=== PATIENT | male | born 1955 | race Caucasian/White ===

== ENCOUNTER 2020-08-12 12:08 | Observation (INO) ==
[2020-08-12 13:19] LABS: Basophils # 0.1 K/mcL (0.0-0.2); Basophils % 0.4 %; Eosinophils # 0.1 K/mcL (0.0-0.6); Eosinophils % 0.7 %; Hematocrit 49.7 % (37.5-50.1); Hemoglobin 16.7 g/dL (12.9-16.9); Immature Granulocytes % 0.4 % (0-4); Lymphocytes % 14.3 %; Mean Corpuscular HGB Conc 33.6 g/dL (31.6-35.5); Mean Corpuscular Hemoglobin 30.5 pg (28.0-33.3); Mean Corpuscular Volume 90.7 fL (83.0-100.0); Mean Platelet Volume 9.4 fL (9.4-12.4); Monocytes # 0.8 K/mcL (0.0-1.3); Monocytes % 5.9 %; Neutrophils # 10.9 K/mcL (1.6-8.9); Platelet Count 319 K/mcL (140-400); Red Blood Count 5.48 M/mcL (4.19-5.50); Red Cell Distribution Width 11.9 % (11.5-14.5); Segmented Neutrophils % 78.3 %; White Blood Count 13.9 K/mcL (4.3-11.1)
[2020-08-12 13:37] LABS: Alanine Aminotransferase 23 Units/L (7-52); Albumin 4.2 g/dL (3.5-5.7); Albumin/Globulin Ratio 1.3 (1.1-2.2); Alkaline Phosphatase 250 Units/L (34-104); Amylase 20 Units/L (29-103); Aspartate Amino Transferase 17 Units/L (13-39); BUN/Creatinine Ratio 17 (6-26); Bilirubin,Direct 0.1 mg/dL (0.0-0.2); Bilirubin,Indirect 0.6 mg/dL (0.0-1.0); Bilirubin,Total 0.7 mg/dL (0.3-1.0); Blood Urea Nitrogen 17 mg/dL (8-23); Calcium 9.6 mg/dL (8.6-10.3); Carbon Dioxide 28 mEq/L (23-29); Chloride 93 mEq/L (98-107); Globulin 3.2 g/dL (2.4-3.5); Glucose 603 mg/dL (70-105); Lipase 11 Units/L (11-82); Osmolality,Calculated 298 (280-300); Potassium 4.7 mEq/L (3.5-5.1); Sodium 129 mEq/L (136-145); Total Protein 7.4 g/dL (6.4-8.9); eGFR For African Americans > 60 (> 60); eGFR For Non-African Americans > 60 (> 60)
[2020-08-12] MEDS ORDERED: 0.9 % Sodium Chloride 1,000 ML IVC ONE ×2 (13:49→15:54)
[2020-08-12] MEDS ORDERED: Isovue-370 500 ML BOTTLE IVP ONE (13:58)
[2020-08-12 14:41] LABS: Amorphous Sediment,Urine Few per hpf (None-Few); Bilirubin,Urine Negative (Negative); Blood,Urine Large (Negative); Clarity,Urine Turbid (Clear); Color,Urine Light-Yellow (Yellow); Glucose,Urine (UA) >=1000 mg/dL (Normal); Ketones,Urine Negative (Negative); Leukocyte Esterase,Urine Large (Negative); Nitrite,Urine Positive (Negative); Protein,Urine Trace mg/dL (Neg-Trace); RBC,Urine 50-100 per hpf (0-3); Specific Gravity,Urine > 1.030 (1.010-1.025); Urobilinogen,Urine Normal (Normal); WBC,Urine 50-100 per hpf (0-3)
[2020-08-12] MEDS ORDERED: cefTRIAXone 1,000 MG in 0.9 % Sodium Chloride Mini Bag 100 ML IVPB ONE (15:40)
[2020-08-12] MEDS ORDERED: Naloxone 0.4 MG/ML INJ IVP PRN (16:15)
[2020-08-12] MEDS ORDERED: D5% in Water 1,000 ML IVC PRN (16:33)
[2020-08-12] MEDS ORDERED: Dextrose Gel 15 GM/37.5 ML TUBE PO PRN ×2 (16:33)
[2020-08-12] MEDS ORDERED: Benzonatate 100 MG CAPSULE PO PRN (16:33)
[2020-08-12] MEDS ORDERED: *HR* Dextrose 50 % in Water (Vial) 50 ML VIAL IVP PRN (16:33)
[2020-08-12] MEDS: Insulin LISPRO 300 UNITS/3 ML VIAL SQ SCH (20:20)
[2020-08-12] MEDS: *HR* Heparin 5,000 UNIT/ML VIAL SQ SCH (20:41)
[2020-08-12] MEDS ORDERED: Insulin DETEMIR 100 UNIT/ML X5UNITS SQ SCH (21:00)
[2020-08-12] MEDS ORDERED: Insulin LISPRO 300 UNITS/3 ML VIAL SQ SCH (21:00)
[2020-08-13] MEDS: *HR* Heparin 5,000 UNIT/ML VIAL SQ SCH ×2 (05:34→14:09)
[2020-08-13 06:44] LABS: Hematocrit 45.1 % (37.5-50.1); Hemoglobin 15.2 g/dL (12.9-16.9); Mean Corpuscular HGB Conc 33.7 g/dL (31.6-35.5); Mean Corpuscular Hemoglobin 31.1 pg (28.0-33.3); Mean Corpuscular Volume 92.2 fL (83.0-100.0); Mean Platelet Volume 9.3 fL (9.4-12.4); Platelet Count 276 K/mcL (140-400); Red Blood Count 4.89 M/mcL (4.19-5.50); Red Cell Distribution Width 11.9 % (11.5-14.5); White Blood Count 13.7 K/mcL (4.3-11.1)
[2020-08-13 06:54] LABS: BUN/Creatinine Ratio 20 (6-26); Blood Urea Nitrogen 18 mg/dL (8-23); Calcium 9.1 mg/dL (8.6-10.3); Carbon Dioxide 30 mEq/L (23-29); Chloride 102 mEq/L (98-107); Glucose 98 mg/dL (70-105); Osmolality,Calculated 288 (280-300); Potassium 3.6 mEq/L (3.5-5.1); Sodium 138 mEq/L (136-145); eGFR For African Americans > 60 (> 60); eGFR For Non-African Americans > 60 (> 60)
[2020-08-13] MEDS: Insulin LISPRO 300 UNITS/3 ML VIAL SQ SCH ×4 (08:11→11:55)
[2020-08-13] MEDS ORDERED: cefTRIAXone 2,000 MG in Water for inj. (sterile) 20 ML IVP SCH (09:00)
[2020-08-13 15:57] VITALS: BP 132/79
[2020-08-14] MEDS ORDERED: lisinopriL 5 MG TABLET PO SCH (09:00)
[2020-08-14] MEDS ORDERED: Aspirin Enteric Coated 81 MG Tablet PO SCH (09:00)
== END 2020-08-13 16:54 | disposition home or self-care (01) ==
LOC: EMEROOARM 12:08 → 3ANU 12:08
PROVIDERS: ADMIT Family Medicine; ATTEND Family Medicine

== ENCOUNTER 2021-04-24 22:21 | Observation (INO) ==
[2021-04-24 23:04] LABS: Basophils # 0.1 K/mcL (0.0-0.2); Basophils % 0.8 %; Eosinophils # 0.2 K/mcL (0.0-0.6); Eosinophils % 2.4 %; Hemoglobin 16.4 g/dL (12.9-16.9); Immature Granulocytes % 0.4 % (0-4); Lymphocytes # 2.5 K/mcL (0.6-4.6); Lymphocytes % 32.1 %; Mean Corpuscular HGB Conc 33.5 g/dL (31.6-35.5); Mean Corpuscular Hemoglobin 31.4 pg (28.0-33.3); Mean Corpuscular Volume 93.9 fL (83.0-100.0); Mean Platelet Volume 9.7 fL (9.4-12.4); Monocytes # 0.5 K/mcL (0.0-1.3); Monocytes % 6.8 %; Neutrophils # 4.5 K/mcL (1.6-8.9); Platelet Count 231 K/mcL (140-400); Red Blood Count 5.22 M/mcL (4.19-5.50); Red Cell Distribution Width 11.9 % (11.5-14.5); Segmented Neutrophils % 57.5 %; White Blood Count 7.8 K/mcL (4.3-11.1)
[2021-04-24 23:22] LABS: BUN/Creatinine Ratio 16 (6-26); Blood Urea Nitrogen 17 mg/dL (8-23); Carbon Dioxide 29 mEq/L (23-29); Chloride 94 mEq/L (98-107); Glucose 605 mg/dL (70-105); Osmolality,Calculated 300 (280-300); Potassium 4.3 mEq/L (3.5-5.1); Sodium 130 mEq/L (136-145); Troponin I 0.03 ng/mL (< 0.04); eGFR For African Americans > 60 (> 60); eGFR For Non-African Americans > 60 (> 60)
[2021-04-25] MEDS ORDERED: Insulin Human Regular 10 UNIT in 0.9 % Sodium Chloride 10 ML IV ONE ×2 (00:27→05:20)
[2021-04-25] MEDS ORDERED: Ondansetron 4 MG/2 ML VIAL IVP PRN (05:08)
[2021-04-25] MEDS ORDERED: Naloxone 0.4 MG/ML INJ IVP PRN (05:08)
[2021-04-25] MEDS ORDERED: Melatonin 3 MG TABLET PO PRN (05:08)
[2021-04-25] MEDS ORDERED: D5% in Water 1,000 ML IVC PRN (05:35)
[2021-04-25] MEDS ORDERED: *HR* Dextrose 50 % in Water (Vial) 50 ML VIAL IVP PRN (05:35)
[2021-04-25] MEDS ORDERED: Dextrose Gel 15 GM/37.5 ML TUBE PO PRN ×2 (05:35)
[2021-04-25] MEDS: Aspirin 81 MG TAB.CHEW PO SCH (08:15)
[2021-04-25 09:54] LABS: Basophils # 0.1 K/mcL (0.0-0.2); Basophils % 0.8 %; Eosinophils # 0.3 K/mcL (0.0-0.6); Eosinophils % 3.1 %; Hematocrit 47.5 % (37.5-50.1); Hemoglobin 16.1 g/dL (12.9-16.9); Immature Granulocytes % 0.4 % (0-4); Lymphocytes # 3.4 K/mcL (0.6-4.6); Lymphocytes % 40.9 %; Mean Corpuscular HGB Conc 33.9 g/dL (31.6-35.5); Mean Corpuscular Hemoglobin 30.7 pg (28.0-33.3); Mean Corpuscular Volume 90.6 fL (83.0-100.0); Mean Platelet Volume 9.5 fL (9.4-12.4); Monocytes # 0.6 K/mcL (0.0-1.3); Monocytes % 6.8 %; Platelet Count 206 K/mcL (140-400); Red Blood Count 5.24 M/mcL (4.19-5.50); Red Cell Distribution Width 11.8 % (11.5-14.5); White Blood Count 8.4 K/mcL (4.3-11.1)
[2021-04-25 09:55] LABS: Estimated Average Glucose 321 mg/dl; Hemoglobin A1C 12.8 %
[2021-04-25 10:02] LABS: Alanine Aminotransferase 11 Units/L (7-52); Albumin 3.6 g/dL (3.5-5.7); Albumin/Globulin Ratio 1.4 (1.1-2.2); Alkaline Phosphatase 140 Units/L (34-104); Aspartate Amino Transferase 13 Units/L (13-39); BUN/Creatinine Ratio 18 (6-26); Bilirubin,Total 0.5 mg/dL (0.3-1.0); Blood Urea Nitrogen 16 mg/dL (8-23); Calcium 8.8 mg/dL (8.6-10.3); Carbon Dioxide 28 mEq/L (23-29); Chloride 99 mEq/L (98-107); Globulin 2.5 g/dL (2.4-3.5); Glucose 263 mg/dL (70-105); Magnesium 1.6 mg/dL (1.6-2.6); Osmolality,Calculated 288 (280-300); Phosphorous 3.4 mg/dL (2.7-4.5); Potassium 3.5 mEq/L (3.5-5.1); Sodium 134 mEq/L (136-145); Total Protein 6.1 g/dL (6.4-8.9); Troponin I 0.03 ng/mL (< 0.04); eGFR For African Americans > 60 (> 60); eGFR For Non-African Americans > 60 (> 60)
[2021-04-25] MEDS ORDERED: Perflutren Lipid Microsphere 1.3 ML in 0.9 % Sodium Chloride 8.7 ML IVP PRN (10:18)
[2021-04-25] MEDS: Insulin LISPRO 300 UNITS/3 ML VIAL SUBQ SCH ×2 (11:40→17:24)
[2021-04-25] MEDS: Insulin DETEMIR 100 UNIT/ML X5UNITS SUBQ SCH ×2 (11:41→20:27)
[2021-04-25] MEDS: Acetaminophen 325 MG TABLET PO PRN (15:08)
[2021-04-25] MEDS ORDERED: lisinopriL 5 MG TABLET PO SCH (16:45)
[2021-04-25] MEDS: *HR* Heparin 5,000 UNIT/ML VIAL SQ SCH (17:23)
[2021-04-25] MEDS: Metoprolol XL (24 HR) Succ 25 MG TAB.ER.24H PO SCH (17:44)
[2021-04-25] MEDS: Spironolactone 12.5 MG TABLET PO SCH (17:44)
[2021-04-25] MEDS: Gabapentin 300 MG CAPSULE PO SCH (20:52)
[2021-04-26] MEDS: *HR* Heparin 5,000 UNIT/ML VIAL SQ SCH ×2 (06:03→16:05)
[2021-04-26] MEDS ORDERED: Regadenoson 0.4 MG/5 ML SYRINGE IVP ONE (07:32)
[2021-04-26] MEDS ORDERED: Gabapentin 300 MG CAPSULE PO SCH (09:00)
[2021-04-26] MEDS: Aspirin 81 MG TAB.CHEW PO SCH (10:40)
[2021-04-26] MEDS: Insulin LISPRO 300 UNITS/3 ML VIAL SUBQ SCH ×3 (10:41→16:39)
[2021-04-26] MEDS: Insulin DETEMIR 100 UNIT/ML X5UNITS SUBQ SCH ×2 (10:42→19:52)
[2021-04-26] MEDS: Spironolactone 12.5 MG TABLET PO SCH (10:42)
[2021-04-26] MEDS: Metoprolol XL (24 HR) Succ 25 MG TAB.ER.24H PO SCH (10:42)
[2021-04-26] MEDS ORDERED: Dextrose Gel 15 GM/37.5 ML TUBE PO PRN ×2 (19:43)
[2021-04-26] MEDS ORDERED: *HR* Dextrose 50 % in Water (Vial) 50 ML VIAL IVP PRN (19:43)
[2021-04-26] MEDS ORDERED: D5% in Water 1,000 ML IVC PRN (19:43)
[2021-04-26] MEDS: Gabapentin 300 MG CAPSULE PO SCH (19:52)
[2021-04-26] MEDS ORDERED: Insulin LISPRO 300 UNITS/3 ML VIAL SUBQ SCH (21:00)
[2021-04-27 02:52] LABS: BUN/Creatinine Ratio 19 (6-26); Blood Urea Nitrogen 17 mg/dL (8-23); Calcium 8.7 mg/dL (8.6-10.3); Carbon Dioxide 26 mEq/L (23-29); Chloride 99 mEq/L (98-107); Glucose 373 mg/dL (70-105); Magnesium 1.6 mg/dL (1.6-2.6); Osmolality,Calculated 293 (280-300); Phosphorous 3.4 mg/dL (2.7-4.5); Potassium 4.1 mEq/L (3.5-5.1); Sodium 133 mEq/L (136-145); eGFR For African Americans > 60 (> 60); eGFR For Non-African Americans > 60 (> 60)
[2021-04-27 04:36] VITALS: BP 120/68; TEMP 97.2
[2021-04-27] MEDS: *HR* Heparin 5,000 UNIT/ML VIAL SQ SCH (06:22)
[2021-04-27 06:40] VITALS: PULSE 72; O2SAT 93
[2021-04-27] MEDS ORDERED: Regadenoson 0.4 MG/5 ML SYRINGE IVP ONE (06:46)
[2021-04-27] MEDS ORDERED: lisinopriL 5 MG TABLET PO SCH (09:00)
[2021-04-27] MEDS ORDERED: Insulin DETEMIR 100 UNIT/ML X5UNITS SUBQ SCH (09:00)
[2021-04-27] MEDS: Spironolactone 12.5 MG TABLET PO SCH (09:19)
[2021-04-27] MEDS: Metoprolol XL (24 HR) Succ 25 MG TAB.ER.24H PO SCH (09:19)
[2021-04-27] MEDS: Aspirin 81 MG TAB.CHEW PO SCH (09:19)
[2021-04-27] MEDS: Insulin LISPRO 300 UNITS/3 ML VIAL SUBQ SCH ×4 (09:20→11:44)
[2021-04-27] MEDS: Acetaminophen 325 MG TABLET PO PRN (14:49)
[2021-04-29 10:07] LABS: CK-MB (CK isoenzymes) 0 % (0-4); CK-MM (CK-isoenzymes) 100 % (96-100)
[2021-04-29 13:25] LABS: CK Total (Ck Isoenzymes) 44 U/L (20-200); CK-BB (CK isoenzymes) 0 % (0-0)
== END 2021-04-27 15:27 | disposition home health service (06) ==
LOC: 2NENU 22:21 → EMEROOARM 22:21 → SUATTDRO 04-25 03:17 → 2NENU 04-25 03:30
PROVIDERS: ADMIT Internal Medicine; ATTEND Internal Medicine

== ENCOUNTER 2022-06-02 12:14 | Inpatient (IN) ==
[2022-06-02] MEDS ORDERED: Sennosides 8.6 MG TABLET PO PRN (14:37)
[2022-06-02] MEDS ORDERED: Furosemide 20 MG TABLET PO PRN (14:38)
[2022-06-02] MEDS ORDERED: Acetaminophen 325 MG TABLET PO PRN (14:44)
[2022-06-02] MEDS ORDERED: *HR* LORazepam Oral Conc 2 MG/ML PO PRN (14:44)
[2022-06-02] MEDS: Gabapentin 400 MG CAPSULE PO SCH ×2 (16:15→21:16)
[2022-06-02] MEDS: Morphine Sulfate Oral CONC 10 MG/0.5 ML ORAL.SYG SL PRN ×2 (16:16→21:16)
[2022-06-02] MEDS ORDERED: D5% in Water 1,000 ML IVC PRN (16:29)
[2022-06-02] MEDS ORDERED: Dextrose Gel 15 GM/37.5 ML TUBE PO PRN ×2 (16:29)
[2022-06-02] MEDS ORDERED: *HR* Dextrose 50 % in Water (Syg) 50 ML SYRINGE IVP PRN (16:29)
[2022-06-02] MEDS ORDERED: Insulin LISPRO 300 UNITS/3 ML VIAL SUBQ SCH (17:00)
[2022-06-02] MEDS ORDERED: Insulin LISPRO 300 UNITS/3 ML VIAL SUBQ ONE ×2 (17:49→20:44)
[2022-06-02] MEDS: Insulin LISPRO 300 UNITS/3 ML VIAL SUBQ SCH ×2 (18:45→19:41)
[2022-06-02] MEDS: Insulin DETEMIR 100 UNIT/ML X5UNITS SUBQ SCH (21:15)
[2022-06-03] MEDS: Insulin LISPRO 300 UNITS/3 ML VIAL SUBQ SCH ×6 (01:06→22:42)
[2022-06-03] MEDS: Morphine Sulfate Oral CONC 10 MG/0.5 ML ORAL.SYG SL PRN ×2 (04:57→12:39)
[2022-06-03] MEDS: Metoprolol XL (24 HR) Succ 25 MG TAB.ER.24H PO SCH (08:44)
[2022-06-03] MEDS: Gabapentin 400 MG CAPSULE PO SCH ×3 (08:44→23:35)
[2022-06-03] MEDS: Insulin DETEMIR 100 UNIT/ML X5UNITS SUBQ SCH ×2 (08:57→23:35)
[2022-06-03] MEDS: Bisacodyl 10 MG RECTAL SUPPOSITORY RC SCH (11:17)
[2022-06-03] MEDS: polyethylene glycoL 3350 17 GM POWD.PACK PO SCH (13:35)
[2022-06-03] MEDS: Albuterol 2.5 MG/3 ML NEBULIZER IH PRN (14:04)
[2022-06-03] MEDS: Sennosides 8.6 MG TABLET PO SCH (23:35)
[2022-06-04] MEDS: Insulin LISPRO 300 UNITS/3 ML VIAL SUBQ SCH ×5 (01:29→16:57)
[2022-06-04] MEDS ORDERED: *HR* Dextrose 50 % in Water (Syg) 50 ML SYRINGE IVP PRN (08:52)
[2022-06-04] MEDS ORDERED: Dextrose Gel 15 GM/37.5 ML TUBE PO PRN ×2 (08:52)
[2022-06-04] MEDS ORDERED: D5% in Water 1,000 ML IVC PRN (08:52)
[2022-06-04] MEDS: Bisacodyl 10 MG RECTAL SUPPOSITORY RC SCH (09:14)
[2022-06-04] MEDS: Metoprolol XL (24 HR) Succ 25 MG TAB.ER.24H PO SCH (09:14)
[2022-06-04] MEDS: Gabapentin 400 MG CAPSULE PO SCH ×3 (09:14→21:09)
[2022-06-04] MEDS: Insulin DETEMIR 100 UNIT/ML X5UNITS SUBQ SCH ×2 (09:15→21:09)
[2022-06-04] MEDS: polyethylene glycoL 3350 17 GM POWD.PACK PO SCH (09:15)
[2022-06-04] MEDS: Sennosides 8.6 MG TABLET PO SCH ×2 (09:15→21:09)
[2022-06-04] MEDS: *HR* Ticagrelor 90 MG TABLET PO SCH ×2 (09:48→21:09)
[2022-06-04] MEDS: Morphine Sulfate Oral CONC 10 MG/0.5 ML ORAL.SYG SL PRN ×2 (11:46→17:06)
[2022-06-04 16:17] LABS: Bilirubin,Urine Negative (Negative); Blood,Urine Negative (Negative); Clarity,Urine Clear (Clear); Color,Urine Light-Yellow (Yellow); Glucose,Urine (UA) 500 mg/dL (Normal); Ketones,Urine Negative (Negative); Leukocyte Esterase,Urine Negative (Negative); Mucus,Urine Few per lpf (None-Few); Nitrite,Urine Negative (Negative); PH,Urine 6.5 pH Units (5.0-8.0); Protein,Urine Trace mg/dL (Neg-Trace); RBC,Urine 0-3 per hpf (0-3); Specific Gravity,Urine 1.014 (1.010-1.025); WBC,Urine 0-3 per hpf (0-3)
[2022-06-05] MEDS: Albuterol 2.5 MG/3 ML NEBULIZER IH PRN ×2 (04:09→12:41)
[2022-06-05] MEDS: Insulin DETEMIR 100 UNIT/ML X5UNITS SUBQ SCH ×2 (08:34→19:55)
[2022-06-05] MEDS: polyethylene glycoL 3350 17 GM POWD.PACK PO SCH (08:34)
[2022-06-05] MEDS: Gabapentin 400 MG CAPSULE PO SCH ×3 (08:35→19:55)
[2022-06-05] MEDS: Metoprolol XL (24 HR) Succ 25 MG TAB.ER.24H PO SCH (08:35)
[2022-06-05] MEDS: *HR* Ticagrelor 90 MG TABLET PO SCH ×2 (08:35→19:56)
[2022-06-05] MEDS: Insulin LISPRO 300 UNITS/3 ML VIAL SUBQ SCH ×3 (08:36→16:38)
[2022-06-05] MEDS: Sennosides 8.6 MG TABLET PO SCH ×2 (08:36→19:55)
[2022-06-05] MEDS: Bisacodyl 10 MG RECTAL SUPPOSITORY RC SCH (08:37)
[2022-06-05] MEDS: Morphine Sulfate Oral CONC 10 MG/0.5 ML ORAL.SYG SL PRN ×3 (10:59→18:26)
[2022-06-05 13:09] LABS: Hematocrit 35.9 % (37.5-50.1); Mean Corpuscular HGB Conc 33.4 g/dL (31.6-35.5); Mean Corpuscular Hemoglobin 29.6 pg (28.0-33.3); Mean Corpuscular Volume 88.4 fL (83.0-100.0); Mean Platelet Volume 9.2 fL (9.4-12.4); Platelet Count 226 K/mcL (140-400); Red Blood Count 4.06 M/mcL (4.19-5.50); Red Cell Distribution Width 13.1 % (11.5-14.5); White Blood Count 9.5 K/mcL (4.3-11.1)
[2022-06-05 13:27] LABS: Adenovirus Not Detected (Not Detect); Bordetella Pertussis Not Detected (Not Detect); Chlamydophila pneumoniae Not Detected (Not Detect); Coronavirus 229E Not Detected (Not Detect); Coronavirus HKU1 Not Detected (Not Detect); Coronavirus NL63 Not Detected (Not Detect); Coronavirus OC43 Not Detected (Not Detect); Human Metapneumovirus Not Detected (Not Detect); Human Rhinovirus/Enterovirus Not Detected (Not Detect); Influenza A Subtype 2009 H1 Not Detected (Not Detect); Influenza B Not Detected (Not Detect); Mycoplasma pneumoniae Not Detected (Not Detect); Parainfluenza Virus 1 Not Detected (Not Detect); Parainfluenza Virus 2 Not Detected (Not Detect); Parainfluenza Virus 3 Not Detected (Not Detect); Parainfluenza Virus 4 Not Detected (Not Detect); Respiratory Syncytial Virus Not Detected (Not Detect); SARS-CoV-2 Not Detected (Not Detect)
[2022-06-06] MEDS: Albuterol 2.5 MG/3 ML NEBULIZER IH PRN ×3 (04:20→19:50)
[2022-06-06] MEDS: Morphine Sulfate Oral CONC 10 MG/0.5 ML ORAL.SYG SL PRN ×5 (07:24→14:36)
[2022-06-06] MEDS: polyethylene glycoL 3350 17 GM POWD.PACK PO SCH (09:23)
[2022-06-06] MEDS: Gabapentin 400 MG CAPSULE PO SCH ×3 (09:24→20:56)
[2022-06-06] MEDS: Metoprolol XL (24 HR) Succ 25 MG TAB.ER.24H PO SCH (09:24)
[2022-06-06] MEDS: *HR* Ticagrelor 90 MG TABLET PO SCH ×2 (09:24→20:56)
[2022-06-06] MEDS: Bisacodyl 10 MG RECTAL SUPPOSITORY RC SCH (09:25)
[2022-06-06] MEDS: Insulin DETEMIR 100 UNIT/ML X5UNITS SUBQ SCH ×2 (09:25→20:56)
[2022-06-06] MEDS: Insulin LISPRO 300 UNITS/3 ML VIAL SUBQ SCH ×3 (09:26→17:04)
[2022-06-06] MEDS: Sennosides 8.6 MG TABLET PO SCH ×2 (09:26→20:56)
[2022-06-06] MEDS: *HR* LORazepam Oral Conc 2 MG/ML PO PRN (14:36)
[2022-06-06] MEDS: Haloperidol Oral Conc 10 MG/5 ML UDC PO PRN (22:27)
[2022-06-07] MEDS: Morphine Sulfate Oral CONC 10 MG/0.5 ML ORAL.SYG SL PRN ×4 (01:56→08:28)
[2022-06-07] MEDS: Albuterol 2.5 MG/3 ML NEBULIZER IH PRN (03:18)
[2022-06-07] MEDS: *HR* LORazepam Oral Conc 2 MG/ML PO PRN (03:56)
[2022-06-07] MEDS ORDERED: *HR* LORazepam Oral Conc 2 MG/ML PO PRN (04:14)
[2022-06-07] MEDS: Haloperidol Oral Conc 10 MG/5 ML UDC PO PRN (08:28)
[2022-06-07] MEDS ORDERED: Furosemide 40 MG/4 ML VIAL IVP ONE (08:50)
[2022-06-07] MEDS ORDERED: Atropine 1% Opth Drops 100 DROP/5 ML BOTTLE SL PRN (08:58)
[2022-06-07] MEDS: Insulin LISPRO 300 UNITS/3 ML VIAL SUBQ SCH ×3 (08:59→20:13)
[2022-06-07] MEDS: Gabapentin 400 MG CAPSULE PO SCH (09:00)
[2022-06-07] MEDS ORDERED: Scopolamine Patch 1.5 MG PATCH.TD72 TD SCH (09:00)
[2022-06-07] MEDS: *HR* Ticagrelor 90 MG TABLET PO SCH (09:00)
[2022-06-07] MEDS: Bisacodyl 10 MG RECTAL SUPPOSITORY RC SCH (09:00)
[2022-06-07] MEDS: polyethylene glycoL 3350 17 GM POWD.PACK PO SCH (09:00)
[2022-06-07] MEDS: Sennosides 8.6 MG TABLET PO SCH (09:00)
[2022-06-07] MEDS: Insulin DETEMIR 100 UNIT/ML X5UNITS SUBQ SCH (09:00)
[2022-06-07] MEDS: Metoprolol XL (24 HR) Succ 25 MG TAB.ER.24H PO SCH (09:01)
[2022-06-07] MEDS ORDERED: Ondansetron 4 MG/2 ML VIAL IVP PRN (09:38)
[2022-06-07] MEDS: *HR* HYDROmorphone (PF) 1 MG/ML SYRINGE IVP PRN ×2 (12:59→15:02)
[2022-06-07] MEDS: *HR* LORazepam 2 MG/ML VIAL IVP PRN ×2 (14:49→15:57)
[2022-06-07] MEDS ORDERED: *HR* FentaNYL (PF) 100 MCG/2 ML VIAL IVP ONE (15:05)
[2022-06-07] MEDS ORDERED: Glycopyrrolate 0.2 MG/ML VIAL IVP PRN (15:06)
[2022-06-07] MEDS ORDERED: FentaNYL (PF) 1,000 MCG/100 ML IV.SOLN IVC SCH (15:15)
[2022-06-07] MEDS ORDERED: *HR* FentaNYL (PF) 100 MCG/2 ML VIAL ONE (16:17)
[2022-06-08] MEDS: *HR* LORazepam 2 MG/ML VIAL IVP PRN (04:07)
[2022-06-08] MEDS: Insulin LISPRO 300 UNITS/3 ML VIAL SUBQ SCH (05:43)
[2022-06-08 07:23] VITALS: BP 111/66; PULSE 129; TEMP 100.1; O2SAT 72
== END 2022-06-08 08:55 | disposition expired | DRG 951 ==
LOC: 2ANU 15:49
PROVIDERS: ADMIT Internal Medicine Hospice and Palliative Medicine; ATTEND Internal Medicine Hospice and Palliative Medicine